=== PATIENT | female | born 1990 | race Caucasian/White ===

== ENCOUNTER → 2016-09-23 | Outpatient (CLI) | payer BC ==
[~2016-09-23] MED LIST: ALBUTEROL INH; DEPA500T2 OR; No Historical Meds; PREN27TA3 PO; TUMS500C OR
[2016-09-23 13:34] LABS: BASO % 0.1 % (0.0-1.0); EOS # 0.1 K/mm3 (0.0-0.50); EOS % 0.5 % (0.0-3.0); LARGE UNSTAINED CELL # 0.1 K/mm3 (0.0-0.4); LARGE UNSTAINED CELL % 0.3 % (0.0-4.0); LYMPH # 0.6 K/mm3 (1.5-6.5); LYMPH % 3.3 % (24.0-44.0); MEAN CORPUSCULAR HEMOGLOBIN 31.8 pg (27.0-33.0); MEAN CORPUSCULAR HGB CONC 34.9 g/dl (32.0-36.5); MEAN CORPUSCULAR VOLUME 91.2 fl (80.0-96.0); MONO # 0.5 K/mm3 (0.0-0.8); MONO % 2.8 % (0.0-5.0); NEUTROPHILS # 16.1 K/mm3 (1.8-7.7); PLATELET COUNT, AUTOMATED 291 k/mm3 (150-450); RED CELL DISTRIBUTION WIDTH 12.4 % (11.5-14.5); WHITE BLOOD COUNT 17.3 K/mm3 (4.0-10.0)
[2016-09-23 13:49] LABS: ALBUMIN 4.2 GM/DL (3.2-5.2); ALBUMIN/GLOBULIN RATIO 1.27 (1.00-1.93); ALKALINE PHOSPHATASE 64 U/L (45-117); ALT/SGPT 17 U/L (12-78); ANION GAP 9 MEQ/L (8-16); AST/SGOT 8 U/L (15-37); BILIRUBIN,TOTAL 0.5 MG/DL (0.2-1.0); BLOOD UREA NITROGEN 14 MG/DL (7-18); CALCIUM LEVEL 8.9 MG/DL (8.5-10.1); CARBON DIOXIDE LEVEL 26 MEQ/L (21-32); CHLORIDE LEVEL 106 MEQ/L (98-107); CREATININE FOR GFR 0.64 MG/DL (0.55-1.02); GLOMERULAR FILTRATION RATE > 60.0 (>60); GLUCOSE, FASTING 109 MG/DL (70-105); POTASSIUM SERUM 4.1 MEQ/L (3.5-5.1); SODIUM LEVEL 141 MEQ/L (136-145); TOTAL PROTEIN 7.5 GM/DL (6.4-8.2)
== END ==
LOC: M LAB 12:07
PROVIDERS: ATTEND Physician Assistant
DX: R19.7 Diarrhea, unspecified (principal)

== ENCOUNTER 2019-12-22 13:30 | Inpatient (IN) | payer BC, OTHER ==
[2019-12-22] MEDS ORDERED: BETAMETHASONE SOLUSPAN 6MG/ML 5ML VIAL (J0702 PER 3MG) ONE (16:41)
[2019-12-22] MEDS ORDERED: AMPICILLIN 2 GM VIAL (J0290 PER 500MG) ONE (16:41)
[2019-12-23] MEDS ORDERED: AMPICILLIN ONE (04:27)
[2019-12-23] MEDS ORDERED: MORPHINE PRES-FREE INJ 10 MG/10 ML VIAL (J2274) ONE (07:15)
[2019-12-23] MEDS ORDERED: OXYTOCIN INJ 10 UNITS/ML VIAL (J2590) ONE (07:15)
[2019-12-23] MEDS ORDERED: ONDANSETRON 4MG/2ML VIAL ONE (07:15)
[2019-12-23] MEDS ORDERED: ceFAZolin 1GM VIAL (J0690 PER 500MG) ONE (07:28)
[2019-12-23] MEDS ORDERED: BICITRA 30ML SOLN UDC ONE (07:28)
[2019-12-23] MEDS ORDERED: FAMOTIDINE/NS 20 MG/50 ML BAG (S0028) ONE (08:13)
[2019-12-23] MEDS ORDERED: PHENYLephrine HCL 500 MCG/5 ML (100MCG/ML) SYRINGE (J2370) ONE (08:13)
[2019-12-23] MEDS ORDERED: fentaNYL 100 MCG/2 ML INJECTION (J3010) ONE (09:30)
[2019-12-23] MEDS ORDERED: OXYTOCIN 30 UNITS IN 0.9% NaCl 500ML IV BAG (J2590) ONE (10:00)
[2019-12-23] MEDS ORDERED: PERCOCET 5MG/325MG TAB ONE (11:03)
[2019-12-24] MEDS ORDERED: ACETAMINOPHEN 500 MG TAB ONE ×3 (00:04→19:31)
[2019-12-25] MEDS ORDERED: ACETAMINOPHEN 500 MG TAB ONE (02:46)
[2019-12-25] MEDS ORDERED: IBUPROFEN 800 MG TAB ONE (08:34)
[2020-01-23 14:28] LABS: HEMATOCRIT 34.6 % (36.0-47.0); HEMOGLOBIN 11.6 g/dl (12.0-15.5); MEAN CORPUSCULAR HEMOGLOBIN 30.1 pg (27.0-33.0); MEAN CORPUSCULAR HGB CONC 33.5 g/dl (32.0-36.5); MEAN CORPUSCULAR VOLUME 89.9 fl (80.0-96.0); PLATELET COUNT, AUTOMATED 220 10^3/uL (150-450); RED BLOOD COUNT 3.85 10^6/uL (4.00-5.40); WHITE BLOOD COUNT 16.4 10^3/uL (4.0-10.0)
[2020-01-23 14:59] LABS: BASO % 0.2 % (0.0-1.0); EOS % 0.2 % (0.0-3.0); HEMATOCRIT 35.2 % (36.0-47.0); HEMOGLOBIN 12.1 g/dl (12.0-15.5); LYMPH # 1.4 10^3/uL (1.5-5.0); LYMPH % 11.1 % (24.0-44.0); MEAN CORPUSCULAR HEMOGLOBIN 30.6 pg (27.0-33.0); MEAN CORPUSCULAR HGB CONC 34.4 g/dl (32.0-36.5); MEAN CORPUSCULAR VOLUME 88.9 fl (80.0-96.0); MONO # 0.8 10^3/uL (0.0-0.8); MONO % 6.2 % (0.0-5.0); NEUTROPHILS # 10.4 10^3/uL (1.5-8.5); NEUTROPHILS % 81.8 % (36.0-66.0); PLATELET COUNT, AUTOMATED 230 10^3/uL (150-450); RED BLOOD COUNT 3.96 10^6/uL (4.00-5.40); WHITE BLOOD COUNT 12.7 10^3/uL (4.0-10.0)
[2020-01-29 10:09] LABS: CORD GAS PCO2 A 51.6 mmHg; CORD GAS PH A 7.289 UNITS; CORD GAS PO2 A 24.4 mmHg; CORD GAS TCO2 A 25.8 MEQ/L
[2020-01-29 10:10] LABS: CORD GAS HCO3 A 24.2 MEQ/L
[2020-01-29 10:11] LABS: CORD GAS PH V 7.342 UNITS; CORD GAS PO2 V 27.4 mmHg; CORD GAS TCO2 V 21.9 MEQ/L
[2020-01-29 10:12] LABS: CORD GAS ABE V -4.6; CORD GAS HCO3 V 20.7 MEQ/L; CORD GAS O2 SAT V 67.5 %
[2020-02-14 06:31] LABS: HEMATOCRIT 31.3 % (36.0-47.0); HEMOGLOBIN 10.7 g/dl (12.0-15.5); MEAN CORPUSCULAR HEMOGLOBIN 30.8 pg (27.0-33.0); MEAN CORPUSCULAR HGB CONC 34.2 g/dl (32.0-36.5); MEAN CORPUSCULAR VOLUME 90.2 fl (80.0-96.0); PLATELET COUNT, AUTOMATED 235 10^3/uL (150-450); RED BLOOD COUNT 3.47 10^6/uL (4.00-5.40); WHITE BLOOD COUNT 22.7 10^3/uL (4.0-10.0)
--- NOTE | 2020-02-19 14:57 | HPE ---
DATE OF ADMISSION: 12/22/2019 HISTORY OF PRESENT ILLNESS: Ghazal is a 29-year-old female, 3, para 1-0-1-1 with an estimated date of confinement (EDC) of 01/31/2020, estimated date of gestation (EGA) 34-2/7 weeks gestation, who was seen and evaluated with gross rupture of membranes. She does have a history of prior section. She is being admitted for monitoring, betamethasone, and repeat section. Upon admission, no bleeding, she is leaking clear fluid, irregular contractions, no fever, good movement. Her record reviewed. She received care at [facility]. Uncomplicated course. LABORATORY DATA: Blood type B positive, Rubella immune, hepatitis negative, HIV negative, GC/chlamydia negative. 1-hour sugar testing was within normal limits. Her GBS was not done as she is only 34 weeks. OBSTETRICAL HISTORY: She had a prior section at 38 weeks. The baby weighed 5 pounds 3 ounces. PAST MEDICAL HISTORY: Denies. PAST SURGICAL HISTORY: section. SOCIAL HISTORY: Patient has a history of a smoker, she quit approximately 5 months ago. MEDICATIONS: - vitamins ALLERGIES: No known drug allergies. PHYSICAL EXAMINATION: Normal appearing female in no acute distress. Abdomen: Soft, nontender, nondistended. Extremities: No clubbing, cyanosis, or edema. Vaginal exam: Gross rupture of membranes. Cervix is fingertip dilated. Fetus in the vertex position. Tracing reviewed, category 1 tracing with irregular contractions. ASSESSMENT: 1. Intrauterine at 34-2/7 weeks gestation with gross rupture of membranes. 2. History of prior section for elective repeat section. PLAN: Admit patient to labor and delivery. Will attempt two doses of steroids. If her contractions do not progress, will await for completion prior to doing a repeat section. Both patient and her mother were counseled. The need for baby to be admitted to intensive care unit (NICU) also discussed. Anesthesia and software specialist notified. MARCIE
== END 2019-12-25 10:50 | disposition home or self-care (01) | DRG 540 ==
LOC: M OBS 13:30
PROVIDERS: ADMIT Obstetrics & Gynecology; ATTEND Obstetrics & Gynecology
PROC: 10D00Z1 Extraction of Products of Conception, Low, Open Approach (ICD-10-PCS; principal; 2019-12-23)
DX: O60.14X0 Preterm labor third trimester with preterm delivery third trimester, not applicable or unspecified (principal); O42.013 Preterm premature rupture of membranes, onset of labor within 24 hours of rupture, third trimester; O34.211 Maternal care for low transverse scar from previous cesarean delivery; Z37.0 Single live birth; Z3A.34 34 weeks gestation of pregnancy; Z87.891 Personal history of nicotine dependence

== ENCOUNTER → 2020-09-09 | Outpatient (REF) | payer OTHER, BC | LOC: M LAB REF 13:27 | PROVIDERS: ATTEND Pediatrics | DX: Z03.818 Encounter for observation for suspected exposure to other biological agents ruled out (principal) ==

== ENCOUNTER → 2021-03-03 | Outpatient (REF) | payer OTHER, BC ==
[2021-03-03 15:25] LABS: RSV AMPLIFICATION NEGATIVE (NEGATIVE)
== END ==
LOC: M LAB REF 13:49
PROVIDERS: ATTEND Pediatrics
DX: Z03.818 Encounter for observation for suspected exposure to other biological agents ruled out (principal)

== ENCOUNTER → 2021-03-07 | Outpatient (REF) | payer OTHER, BC ==
[2021-03-07 11:20] LABS: RSV AMPLIFICATION NEGATIVE (NEGATIVE)
== END ==
LOC: M LAB REF 10:02
PROVIDERS: ATTEND Pediatrics
DX: Z20.822 Contact with and (suspected) exposure to COVID-19 (principal)

== ENCOUNTER → 2021-04-07 | Outpatient (REF) | payer OTHER, BC ==
[2021-04-07 15:38] LABS: RSV AMPLIFICATION NEGATIVE (NEGATIVE)
== END ==
LOC: M LAB REF 13:16
PROVIDERS: ATTEND Pediatrics
DX: Z03.818 Encounter for observation for suspected exposure to other biological agents ruled out (principal)

== ENCOUNTER → 2021-04-21 | Outpatient (REF) | payer OTHER, BC ==
[2021-04-21 11:22] LABS: RSV AMPLIFICATION NEGATIVE (NEGATIVE)
== END ==
LOC: M LAB REF 10:02
PROVIDERS: ATTEND Pediatrics
DX: Z20.822 Contact with and (suspected) exposure to COVID-19 (principal)

== ENCOUNTER → 2021-04-24 | Outpatient (REF) | payer OTHER, BC ==
[2021-04-24 14:26] LABS: RSV AMPLIFICATION NEGATIVE (NEGATIVE)
== END ==
LOC: M LAB REF 13:13
PROVIDERS: ATTEND Pediatrics
DX: Z20.828 Contact with and (suspected) exposure to other viral communicable diseases (principal)

== ENCOUNTER → 2021-04-29 | Outpatient (REF) | payer OTHER, BC | LOC: M LAB REF 12:59 | PROVIDERS: ATTEND Pediatrics | DX: Z03.818 Encounter for observation for suspected exposure to other biological agents ruled out (principal) ==

== ENCOUNTER → 2021-09-08 | Outpatient (REF) | payer OTHER, BC | LOC: M LAB REF 16:48 | PROVIDERS: ATTEND Pediatrics | DX: J06.9 Acute upper respiratory infection, unspecified (principal) ==

== ENCOUNTER → 2021-09-30 | Outpatient (CLI) | payer OTHER, BC | LOC: M PLALAB 11:52 | PROVIDERS: ATTEND Nurse Practitioner Family | DX: M89.8X8 Other specified disorders of bone, other site (principal) ==

== ENCOUNTER → 2023-01-11 | Outpatient (CLI) | payer OTHER ==
[2023-01-13 16:08] LABS: HERPES ZOSTER, VARICELLA IgG 1118 index (Immune >165); HERPES ZOSTER, VARICELLA IgM <0.91 index (0.00-0.90)
== END ==
LOC: M PLALAB 12:00
PROVIDERS: ATTEND Nurse Practitioner Family
DX: Z02.0 Encounter for examination for admission to educational institution (principal)

== ENCOUNTER → 2024-01-27 | Outpatient (CLI) | payer OTHER | LOC: M WHC 15:42 | PROVIDERS: ATTEND Nurse Practitioner Family | DX: T83.32XA Displacement of intrauterine contraceptive device, initial encounter (principal); N83.291 Other ovarian cyst, right side ==

== ENCOUNTER → 2025-02-20 | Outpatient (CLI) | payer OTHER ==
[2025-02-20 13:01] LABS: BASO # 0.0 10^3/uL (0.0-0.2); BASO % 0.5 % (0.0-1.0); EOS # 0.1 10^3/uL (0.0-0.5); EOS % 1.1 % (0.0-3.0); LYMPH # 1.4 10^3/uL (1.5-5.0); LYMPH % 25.4 % (24.0-44.0); MONO # 0.4 10^3/uL (0.0-0.8); MONO % 6.8 % (2.0-8.0); NEUTROPHILS # 3.6 10^3/uL (1.5-8.5); NEUTROPHILS % 66.0 % (36.0-66.0); PLATELET COUNT, AUTOMATED 315 10^3/uL (150-450)
[2025-02-20 13:06] LABS: ERYTHROCYTE SEDIMENTATION RATE 3 mm/hr (0-20)
[2025-02-20 13:11] LABS: TOTAL 25(OH) VITAMIN D 23.5 NG/ML (20.0-100.0)
[2025-02-20 13:12] LABS: ALT/SGPT 17 U/L (7.0-40); AST/SGOT 13 U/L (<34); C REACTIVE PROTEIN QUANTITATIV < 0.50 MG/DL (<1.0); CALCIUM LEVEL 9.0 MG/DL (8.5-10.1); CARBON DIOXIDE LEVEL 26 MMOL/L (20-31); CHLORIDE LEVEL 104 MMOL/L (98-107); CREATININE FOR GFR 0.59 MG/DL (0.55-1.30); FREE T4 1.34 NG/DL (0.89-1.76); GLOMERULAR FILTRATION RATE > 90.0 (>60); POTASSIUM SERUM 4.0 MMOL/L (3.5-5.1); SODIUM LEVEL 135 MMOL/L (136-145)
[2025-02-20 13:58] LABS: ESTIMATED AVERAGE GLUCOSE 100.0 MG/DL (60-110)
== END ==
LOC: M PLALAB 07:53
PROVIDERS: ATTEND Pediatrics
DX: E66.3 Overweight (principal)